=== PATIENT | female | born 1960 | race Caucasian/White ===

== ENCOUNTER 2017-06-01 08:37 | Emergency (ER) | payer MEDICAID ==
[~2017-06-01] VITALS: Ht 160 cm; Wt 61.2 kg
[~2017-06-01 08:37] MED LIST: ECO81 PO; IMITREX25 MG PO; MOTRIN800 MG PO; ZES10 PO; ZOC20 PO
[2017-06-01 08:42] VITALS: Ht 160 cm; Wt 61.2 kg
[2017-06-01 12:37] LABS: BASOPHIL % 0.7 % (0-2); PLATELET COUNT 249 x10^3mcL (130-400)
[2017-06-01 12:40] LABS: microscopic required? NO
[2017-06-01 12:46] LABS: UA SPECIFIC GRAVITY 1.015 (1.005-1.035); urine erythrocyte NEGATIVE (NEGATIVE)
[2017-06-01 12:53] LABS: CALCIUM 9.3 mg/dL (8.5-10.1); CARBON DIOXIDE 29.2 mmol/L (21-32); CHLORIDE SERUM 103 mmol/L (98-107); CREATININE SERUM 0.6 mg/dL (0.6-1.0); GFR1 > 60 mL/min; GLUCOSE SERUM 95 mg/dL (74-106); POTASSIUM SERUM 4.9 mmol/L (3.5-5.1); SODIUM SERUM 141 mmol/L (136-145)
[2017-06-01 12:57] LABS: ALKALINE PHOSPHATASE 122 U/L (46-116); ALT/SGPT 48 U/L (14-59); AST/SGOT 38 U/L (15-37); BILIRUBIN TOTAL 1.35 mg/dL (0.20-1.00); LIPASE 169 IU/L (73-393)
[2017-06-01 12:58] LABS: TOTAL PROTEIN, SERUM 8.4 g/dL (6.4-8.2)
[2017-06-01 15:10] VITALS: BP 145/76
== END 2017-06-01 15:10 | disposition home or self-care (01) ==
LOC: ED 08:37
PROVIDERS: Emergency Medicine
DX: R10.9 Unspecified abdominal pain (principal); I10 Essential (primary) hypertension; Z90.49 Acquired absence of other specified parts of digestive tract
CPT/HCPCS: J1885; J2270; J2405; J7030

== ENCOUNTER 2017-09-17 13:57 | Emergency (ER) | payer MEDICAID ==
[~2017-09-17] VITALS: Ht 157.5 cm; Wt 61.7 kg
[2017-09-17 14:06] VITALS: Ht 157.5 cm; Wt 61.7 kg
[2017-09-17 15:09] LABS: BASOPHIL % 0.4 % (0-2); PLATELET COUNT 232 x10^3mcL (130-400); RED CELL DISTRIBUTION WIDTH 12.8 % (11.5-14.5)
[2017-09-17 15:14] LABS: CALCIUM 8.7 mg/dL (8.5-10.1); CARBON DIOXIDE 28.6 mmol/L (21-32); CHLORIDE SERUM 103 mmol/L (98-107); CREATININE SERUM 0.5 mg/dL (0.6-1.0); GFR1 > 60 mL/min; GLUCOSE SERUM 92 mg/dL (74-106); SODIUM SERUM 140 mmol/L (136-145)
[2017-09-17 15:20] LABS: ALBUMIN 3.7 g/dL (3.4-5.0); ALKALINE PHOSPHATASE 85 U/L (46-116); ALT/SGPT 29 U/L (14-59); AMYLASE 98 U/L (25-115); AST/SGOT 23 U/L (15-37); BILIRUBIN TOTAL 0.86 mg/dL (0.20-1.00); LIPASE 206 IU/L (73-393); TOTAL PROTEIN, SERUM 7.7 g/dL (6.4-8.2)
[2017-09-17 17:08] VITALS: BP 127/77
== END 2017-09-17 17:06 | disposition home or self-care (01) ==
LOC: ED 13:57
PROVIDERS: Specialist
DX: R10.11 Right upper quadrant pain (principal); I10 Essential (primary) hypertension
CPT/HCPCS: 83880; J1885; J2405; J3010; J7030; Q0092

== ENCOUNTER 2018-01-28 08:33 | Emergency (ER) | payer MEDICAID ==
[~2018-01-28] VITALS: Ht 160 cm; Wt 63.5 kg
[2018-01-28 08:45] VITALS: Ht 160 cm; Wt 63.5 kg
[2018-01-28 09:39] LABS: BASOPHIL % 0.5 % (0-2); PLATELET COUNT 243 x10^3mcL (130-400)
[2018-01-28 09:45] LABS: CARBON DIOXIDE 29.6 mmol/L (21-32); CHLORIDE SERUM 106 mmol/L (98-107); CREATININE SERUM 0.6 mg/dL (0.6-1.0); GFR1 > 60 mL/min; GLUCOSE SERUM 95 mg/dL (74-106); POTASSIUM SERUM 4.6 mmol/L (3.5-5.1); SODIUM SERUM 145 mmol/L (136-145)
[2018-01-28 09:49] LABS: ALBUMIN 3.9 g/dL (3.4-5.0); ALKALINE PHOSPHATASE 94 U/L (46-116); ALT/SGPT 32 U/L (14-59); AMYLASE 90 U/L (25-115); AST/SGOT 26 U/L (15-37); BILIRUBIN TOTAL 1.41 mg/dL (0.20-1.00); LIPASE 159 IU/L (73-393)
[2018-01-28 09:54] LABS: TOTAL PROTEIN, SERUM 8.5 g/dL (6.4-8.2)
[2018-01-28 10:45] VITALS: BP 139/77
== END 2018-01-28 10:45 | disposition home or self-care (01) ==
LOC: ED 08:33
PROVIDERS: Emergency Medicine
DX: R10.11 Right upper quadrant pain (principal); I10 Essential (primary) hypertension
CPT/HCPCS: 36415; J1885

== ENCOUNTER 2018-04-27 08:42 | Emergency (ER) | payer MEDICAID ==
[~2018-04-27] VITALS: Ht 152.4 cm; Wt 64.4 kg
[2018-04-27 10:51] VITALS: BP 124/75
== END 2018-04-27 10:51 | disposition home or self-care (01) ==
LOC: ED 08:42
DX: N39.0 Urinary tract infection, site not specified (principal); E78.00 Pure hypercholesterolemia, unspecified; I10 Essential (primary) hypertension; Z98.890 Other specified postprocedural states
CPT/HCPCS: 82962; J0696; J1885